=== PATIENT | male | born 1955 | race Caucasian/White ===

== ENCOUNTER 2017-04-18 08:30 | Inpatient (IN) | payer OTHER ==
[~2017-04-18] VITALS: Ht 170.2 cm; Wt 92.1 kg
[2017-04-18] MEDS ORDERED: VASOTEC10 MG PO (11:45)
== END 2017-04-26 16:26 | disposition home or self-care (01) | DRG 331 ==
LOC: SURH 04-23 08:30 → SURG 04-23 09:27 → O/R 04-23 09:27 → SURH 04-23 10:45 → SURG 04-23 20:28 → MEDI 04-23 20:28 → SURG 04-26 16:26
PROVIDERS: Colon & Rectal Surgery
PROC: 0DTP4ZZ Resection of Rectum, Percutaneous Endoscopic Approach (ICD-10-PCS; 2017-04-23)
PROC: 07TC4ZZ Resection of Pelvis Lymphatic, Percutaneous Endoscopic Approach (ICD-10-PCS; 2017-04-23)
PROC: 0D1B4Z4 Bypass Ileum to Cutaneous, Percutaneous Endoscopic Approach (ICD-10-PCS; 2017-04-23)
PROC: 0DJD8ZZ Inspection of Lower Intestinal Tract, Via Natural or Artificial Opening Endoscopic (ICD-10-PCS; 2017-04-23)
PROC: 4A033R1 Measurement of Arterial Saturation, Peripheral, Percutaneous Approach (ICD-10-PCS; 2017-04-23)
PROC: 4A12X4Z Monitoring of Cardiac Electrical Activity, External Approach (ICD-10-PCS; 2017-04-23)
PROC: 5A09457 Assistance with Respiratory Ventilation, 24-96 Consecutive Hours, Continuous Positive Airway Pressure (ICD-10-PCS; 2017-04-23)
PROC: 0DTN4ZZ Resection of Sigmoid Colon, Percutaneous Endoscopic Approach (ICD-10-PCS; principal; 2017-04-23 10:45)
PROC: 3E0F7GC Introduction of Other Therapeutic Substance into Respiratory Tract, Via Natural or Artificial Opening (ICD-10-PCS; 2017-04-24)
DX: C20 Malignant neoplasm of rectum (principal); R59.0 Localized enlarged lymph nodes; I11.9 Hypertensive heart disease without heart failure; I48.0 Paroxysmal atrial fibrillation; G47.33 Obstructive sleep apnea (adult) (pediatric); E66.8 Other obesity; M10.09 Idiopathic gout, multiple sites

== ENCOUNTER → 2017-05-13 | Emergency (ER) | payer OTHER ==
[~2017-05-13] VITALS: Ht 170.2 cm; Wt 81.2 kg
[~2017-05-13] MED LIST: ABATINEX680 MG; BENADRYL25 MG PO; MEDROL4 MG PO; PEPCID40 MG PO; VASOTEC10 MG PO; VISTARIL25 MG
== END | disposition home or self-care (01) ==
LOC: ER 02:37
DX: T78.3XXA Angioneurotic edema, initial encounter (principal)

== ENCOUNTER 2017-07-16 08:04 | Outpatient (CLI) | payer OTHER | END 2017-07-16 12:25 | disposition home or self-care (01) | LOC: RAD 08:04 | DX: C20 Malignant neoplasm of rectum (principal) ==

== ENCOUNTER 2017-07-16 14:15 | Inpatient (IN) | payer OTHER ==
[~2017-07-16] VITALS: Ht 170.2 cm; Wt 94.8 kg
== END 2017-07-19 16:17 | disposition home or self-care (01) | DRG 330 ==
LOC: O/R 07-17 12:01 → SURH 07-17 14:15
PROVIDERS: Colon & Rectal Surgery
PROC: 4A033R1 Measurement of Arterial Saturation, Peripheral, Percutaneous Approach (ICD-10-PCS; 2017-07-17)
PROC: 4A12X4Z Monitoring of Cardiac Electrical Activity, External Approach (ICD-10-PCS; 2017-07-17)
PROC: 0DQB4ZZ Repair Ileum, Percutaneous Endoscopic Approach (ICD-10-PCS; principal; 2017-07-17 22:30)
DX: Z43.2 Encounter for attention to ileostomy (principal); C20 Malignant neoplasm of rectum; G47.33 Obstructive sleep apnea (adult) (pediatric); I48.0 Paroxysmal atrial fibrillation; I11.9 Hypertensive heart disease without heart failure; E66.8 Other obesity; Z87.891 Personal history of nicotine dependence

== ENCOUNTER 2018-07-09 10:37 | Day surgery (SDC) | payer OTHER | END 2018-07-09 16:20 | disposition home or self-care (01) | LOC: AMB-ENDOS 10:37 | DX: K62.4 Stenosis of anus and rectum (principal); K64.1 Second degree hemorrhoids ==

== ENCOUNTER → 2019-10-20 | Outpatient (CLI) | payer OTHER | END | disposition home or self-care (01) | LOC: LAB 06:00 → ADM 13:45 → EDSTATUS 10-23 13:45 → AMB-ENDOS 10-23 13:45 → ADM 10-23 13:45 | PROVIDERS: ATTEND Colon & Rectal Surgery | DX: C20 Malignant neoplasm of rectum (principal); K92.1 Melena; R59.0 Localized enlarged lymph nodes; Z85.048 Personal history of other malignant neoplasm of rectum, rectosigmoid junction, and anus; K62.4 Stenosis of anus and rectum; Z01.812 Encounter for preprocedural laboratory examination ==

== ENCOUNTER 2019-12-04 07:15 | Day surgery (SDC) | payer OTHER | END 2019-12-04 10:30 | disposition home or self-care (01) | LOC: AMB-ENDOS 07:15 | PROVIDERS: ATTEND Colon & Rectal Surgery | DX: K62.4 Stenosis of anus and rectum (principal); K64.1 Second degree hemorrhoids; Z20.828 Contact with and (suspected) exposure to other viral communicable diseases ==

== ENCOUNTER 2021-01-18 22:40 | Inpatient (IN) | payer OTHER ==
[~2021-01-18] VITALS: Ht 170.2 cm; Wt 90.7 kg
== END 2021-01-25 12:14 | disposition left against medical advice (07) | DRG 190 ==
LOC: ER 22:40 → MEDI 01-19 09:50
PROVIDERS: ADMIT Internal Medicine; ATTEND Internal Medicine
PROC: 5A09357 Assistance with Respiratory Ventilation, Less than 24 Consecutive Hours, Continuous Positive Airway Pressure (ICD-10-PCS; principal; 2021-01-19)
PROC: 4A033R1 Measurement of Arterial Saturation, Peripheral, Percutaneous Approach (ICD-10-PCS; 2021-01-19)
PROC: 3E0F7GC Introduction of Other Therapeutic Substance into Respiratory Tract, Via Natural or Artificial Opening (ICD-10-PCS; 2021-01-19)
PROC: 3E0F7SF Introduction of Other Gas into Respiratory Tract, Via Natural or Artificial Opening (ICD-10-PCS; 2021-01-19)
PROC: BW25ZZZ Computerized Tomography (CT Scan) of Chest, Abdomen and Pelvis (ICD-10-PCS; 2021-01-19)
PROC: B24BZZZ Ultrasonography of Heart with Aorta (ICD-10-PCS; 2021-01-20)
PROC: BW2510Z Computerized Tomography (CT Scan) of Chest, Abdomen and Pelvis using Low Osmolar Contrast, Unenhanced and Enhanced (ICD-10-PCS; 2021-01-20)
DX: J44.1 Chronic obstructive pulmonary disease with (acute) exacerbation (principal); I11.0 Hypertensive heart disease with heart failure; I50.23 Acute on chronic systolic (congestive) heart failure; F17.210 Nicotine dependence, cigarettes, uncomplicated; I48.0 Paroxysmal atrial fibrillation; T54.3X1A Toxic effect of corrosive alkalis and alkali-like substances, accidental (unintentional), initial encounter; R06.02 Shortness of breath; Y92.012 Bathroom of single-family (private) house as the place of occurrence of the external cause; Z20.822 Contact with and (suspected) exposure to COVID-19; G47.33 Obstructive sleep apnea (adult) (pediatric)

== ENCOUNTER 2022-01-09 22:39 | Emergency (ER) | payer OTHER ==
[~2022-01-09] VITALS: Ht 170.2 cm; Wt 102.1 kg
[2022-01-09] MEDS ORDERED: PEPCID20 MG PO (22:46)
[2022-01-09] MEDS ORDERED: PLAVIX75 MG (22:46)
[2022-01-09] MEDS ORDERED: VAZALORE81 MG PO (22:46)
[2022-01-09] MEDS ORDERED: CARVEDILOL6.25 MG (22:46)
[2022-01-09] MEDS ORDERED: CRESTOR40 MG PO (22:47)
[2022-01-10] MEDS ORDERED: ALBUTEROL2.5 MG/3 M IH (05:12)
[2022-01-10] MEDS ORDERED: ZYNCOF 20-400120 ML PO (05:12)
== END 2022-01-10 05:37 ==
LOC: ER 22:39
DX: J06.9 Acute upper respiratory infection, unspecified (principal); F17.200 Nicotine dependence, unspecified, uncomplicated

== ENCOUNTER 2025-01-14 20:53 | Emergency (ER) | payer OTHER ==
[~2025-01-14] VITALS: Ht 170.2 cm; Wt 90.7 kg
[~2025-01-14 20:53] MED LIST changes: +ALBUTEROL2.5 MG/3 M IH; +CARVEDILOL6.25 MG; +CRESTOR40 MG PO; +PEPCID20 MG PO; +PLAVIX75 MG; +VAZALORE81 MG PO; +ZYNCOF 20-400120 ML PO
[2025-01-14] MEDS ORDERED: IPRATROPIUM BROMIDE 0.5 MG/2.5 ML AMPUL.NEB IH SCH (22:45)
[2025-01-14] MEDS ORDERED: BUDESONIDE 0.5 MG/2 ML AMPUL.NEB IH ONE (22:45)
[2025-01-14] MEDS ORDERED: KETOROLAC TROMETHAMINE 30 MG VIAL IV ONE (22:45)
[2025-01-14] MEDS ORDERED: DEXAMETHASONE 4 MG TABLET PO ONE (22:45)
[2025-01-14] MEDS ORDERED: DEXAMETHASONE SODIUM PHOSPHATE 4 MG/ML VIAL ONE (23:13)
[2025-01-14] MEDS ORDERED: KETOROLAC TROMETHAMINE 30 MG VIAL ONE (23:13)
[2025-01-14] MEDS ORDERED: ALBUTEROL SULFATE 3 ML/2.5 MG AMPUL.NEB IH SCH (23:30)
[2025-01-14] MEDS ORDERED: levoFLOXacin IN DEXTROSE 5 % 5 MG/ML PIGGYBAG IV ONE (23:30)
[2025-01-14] MEDS ORDERED: METHYLPREDNISOLONE SOD SUCC 125 MG VIAL ONE (23:53)
[2025-01-15 00:11] LABS: BASO % 0.6 % (0.1-1.2); EOS # 0.60 (0.04-0.54); EOS % 7.3 % (0.7-7.0); LYMPH # 1.44 (1.18-3.74); LYMPH % 17.5 % (19.3-53.1); MEAN PLATELET VOLUME 10.00 fl (9.4-12.4); MONO # 1.21 (0.24-0.82); NEUT # 4.91 (1.56-6.13); NEUT % 59.4 % (34.0-71.1); RED CELL DISTRIBUTION WIDTH 12.7 % (11.6-14.4)
[2025-01-15 00:15] LABS: MONO % 14.7 % (4.7-12.5)
[2025-01-15] MEDS ORDERED: METHYLPREDNISOLONE SOD SUCC 125 MG VIAL IV ONE ×2 (00:15)
[2025-01-15 00:46] LABS: ALT/SGPT 23.0 U/L (12-78); AST/SGOT 24.0 U/L (15-37); BILIRUBIN TOTAL 0.45 mg/dL (0.3-1.2); BUN CREA RATIO 14.0 (7.0-25.0); CREATININE SERUM 1.08 mg/dL (0.70-1.30); GFR 67.59; GLOBULINA 3.0 G/DL (2.4-3.5); GLUCOSE FASTING 125.0 mg/dL (65-100); OSMOLALITY SERUM 284.0 MOSM/KG (275-295)
[2025-01-15] MEDS ORDERED: IPRATROPIUM BROMIDE 0.5 MG/2.5 ML AMPUL.NEB IH ONE (00:47)
[2025-01-15] MEDS ORDERED: ALBUTEROL SULFATE 3 ML/2.5 MG AMPUL.NEB IH ONE (00:47)
[2025-01-15] MEDS ORDERED: BUDESONIDE 0.5 MG/2 ML AMPUL.NEB IH ONE (00:48)
[2025-01-15 01:37] LABS: COVID-19 AG NEGATIVE (NEGATIVE)
== END 2025-01-15 03:17 | disposition home or self-care (01) ==
LOC: ER 20:54
PROVIDERS: General Practice
DX: J44.89 Other specified chronic obstructive pulmonary disease (principal); R05.9 Cough, unspecified; Z20.822 Contact with and (suspected) exposure to COVID-19; I10 Essential (primary) hypertension